=== PATIENT | female | born 1990 | race Caucasian/White ===

== ENCOUNTER 2017-11-01 16:04 | Observation (INO) | payer BC ==
[2017-11-01] MEDS ORDERED: BUPIVACAINE/EPI 0.5% 30 ML SDV ONE (16:18)
[2017-11-01] MEDS ORDERED: IOPAMIDOL (ISOVUE-300) 150 ML BTL ONE (16:19)
[2017-11-01] MEDS ORDERED: LR 1,000 ML IV ONE (17:03)
--- NOTE | 2017-11-01 17:04 | PDANEPAE ---
ANE History of Present Illness 27 yo female with cholelithiasis and acute cholecystitis. ANE Past Medical History - Cardiovascular History Hx Hypertension: No Hx Arrhythmias: No Hx Chest Pain: No Cardiovascular History Comment: heart murmur - Pulmonary History Hx COPD: No Hx Asthma/Reactive Airway Disease: No Hx Recent Upper Respiratory Infection: No Hx Sleep Apnea: No - Renal History Hx Renal Disorders: Yes Renal History Comment: current UTI on second round of Abx. h/o multi episodes of renal calculi. - Liver History Hx Hepatic Disorders: No - Surgical History Prior Surgeries: lithotripsy ANE Review of Systems Review of Systems: - Systems Constitutional: Reports: no symptoms Cardiac: Reports: no symptoms Respiratory: Reports: no symptoms Gastrointestinal: Reports: abdominal pain (10/16 currently) ANE Patient History - Allergies Allergies/Adverse Reactions: No Known Allergies Allergy (Unverified 11/01/17 16:32) - Home Medications Home Medications: Keflex 11/01/17 [Last Taken 10/31/17] Nexplanon 11/01/17 [Last Taken 11/01/17] - NPO status NPO Since - Liquids (Date): 11/01/17 NPO Since - Liquids (Time): 07:00 NPO Since - Solids (Date): 10/31/17 NPO Since - Solids (Time): 18:30 - Anes Hx Anes Hx: no prior problems - Family Anes Hx Family Anes Hx: neg - N/A ANE Labs/Vital Signs - Vital Signs Blood Pressure: 127/76 Heart Rate: 80 Respiratory Rate: 14 O2 Sat (%): 96 Height: 165.1 cm Weight: 58.967 kg ANE Physical Exam - Airway Neck exam: FROM Mallampati Score: Class 2 Mouth exam: normal dental/mouth exam - Pulmonary Pulmonary: clear to auscultation - Cardiovascular Cardiovascular: regular rate and rhythym - ASA Status ASA Status: II ANE Anesthesia Plan Anesthesia Plan: general endotracheal anesthesia
[2017-11-01] MEDS ORDERED: DEXAMETHASONE 4 MG/ML VIAL ONE ×2 (17:09)
[2017-11-01] MEDS ORDERED: fentaNYL 100 MCG/2 ML INJ ONE ×2 (17:09→19:10)
[2017-11-01] MEDS ORDERED: KETOROLAC 30 MG/1 ML SDV ONE (17:09)
[2017-11-01] MEDS ORDERED: ROCURONIUM 50 MG/5 ML VIAL ONE (17:49)
[2017-11-01] MEDS ORDERED: LIDOCAINE 2% 5 ML SDV ONE (17:49)
[2017-11-01] MEDS ORDERED: PROPOFOL 200 MG/20 ML VIAL ONE ×2 (17:49)
[2017-11-01] MEDS ORDERED: ONDANSETRON 4 MG/2 ML VIAL IVP PRN (17:52)
--- NOTE | 2017-11-01 17:52 | POSTOPPROG ---
Post Op Note Date of Operation: 11/01/17 Surgeon: Chris Martin Pit Crane Operator: Fern Silva Anesthesiologist: Yajaira Feliz Anesthesia: GET(General Endotracheal) Pre-op Diagnosis: Acute Choly Post-op Diagnosis: Same Procedure: Lap Choly Findings: small duct/stones Inf/Abcess present in the surg proc area at time of surgery?: Yes Depth: Organ Space EBL: Minimal Complications: no immediate Specimen(s): gallbladder
[2017-11-01] MEDS ORDERED: LR 1,000 ML IV SCH (18:00)
[2017-11-01] MEDS ORDERED: ONDANSETRON 4 MG/2 ML VIAL ONE ×2 (18:20→19:23)
[2017-11-01] MEDS ORDERED: oxyCODONE IR 5 MG TAB PO PRN (18:25)
[2017-11-01] MEDS ORDERED: LR 500 ML IV PRN (18:25)
[2017-11-01] MEDS ORDERED: NALOXONE HCL 0.4 MG/ML INJ IVP PRN (18:25)
[2017-11-01] MEDS ORDERED: ALBUTEROL 3 ML DEYVIAL IH PRN (18:25)
--- NOTE | 2017-11-01 18:54 | POSTANESTH ---
Post Anesthetic Evaluation Cardiovascular Status: Normal, Stable Respiratory Status: Normal, Stable Level of Consciousness/Mental Status: Can Participate in Eval, Moderately Sleepy Pain Control: Adequate, Prn Tx Ordered Nausea/Vomiting Control: Adequate, Prn Tx Ordered Complications Possibly Related to Anesthesia: None Noted
--- NOTE | 2017-11-01 19:09 | GOP ---
[f rep st] OPERATIVE REPORT DATE OF OPERATION: 11/01/2017 SURGEON: Chris Martin MD INDUSTRIAL TECH INSTRUCTOR: Fern Silva PA-C. ANESTHESIA: General. ANESTHESIOLOGIST: Yajaira Farooq MD PREOPERATIVE DIAGNOSIS: Acute cholecystitis. POSTOPERATIVE DIAGNOSIS: Acute cholecystitis. PROCEDURE PERFORMED: Laparoscopic cholecystectomy. FINDINGS: Edematous gallbladder. INDICATIONS: 27-year-old female with a history of recurrent biliary colic, who presents with a 1-day history of a progressive right upper quadrant pain. She is undergoing a laparoscopic cholecystectomy at this time. Risks and benefits were explained including bleeding, infection, open conversion, bile duct injury , retained stone, potential role for postoperative ERCP as well as others. All questions were answered. She desires to proceed. A assistant signal maintainer is standard, necessary, and customary for the safe performance of this procedure. DESCRIPTION OF PROCEDURE: After general anesthesia was induced, the abdomen was preinjected with 0.5% Marcaine with epinephrine. A curvilinear infraumbilical incision was created. The midline fascia was opened vertically. A 10 mm trocar was placed under direct visualization. A 5 mm epigastric port followed by 2 right upper quadrant percutaneous ports were inserted. The gallbladder was mildly edematous. This was easily retracted cephalad. Both duct and artery circumferentially encompassed confirming the critical view of safety. The duct was multiply clipped and divided with the ultrasonic dissector , as was the artery. The gallbladder was peeled from the liver bed fossa and brought through umbilical port site intact using EndoCatch pouch. Satisfactory hemostasis was assured. Further exploration revealed normal cystic bilateral ovaries and uterus, normal appendix, normal appearing visualized visceral contents as well as liver. Trocars were removed under direct visualization. The infraumbilical midline fascia was closed with a running Vicryl suture. The wounds were closed with Monocryl suture followed by Dermabond. The patient was taken to recovery uneventfully. /[id number]/MODL MTDD
[2017-11-01] MEDS: fentaNYL 100 MCG/2 ML INJ IVP PRN ×3 (19:13→19:27)
[2017-11-01] MEDS ORDERED: HYDROmorphONE/DILAUDID 2 MG/ML INJ ONE (19:29)
[2017-11-01] MEDS ORDERED: PROMETHAZINE HCL 25 MG/ML INJ ONE (19:30)
[2017-11-01] MEDS: PROMETHAZINE HCL 25 MG/ML INJ IVP PRN ×2 (19:33→19:47)
[2017-11-01] MEDS: HYDROmorphone HCL/NS 0.5 MG/ML SYR IVP PRN ×3 (19:33→20:57)
[2017-11-01] MEDS: KETOROLAC 15 MG/1 ML SDV IVP SCH (20:09)
[2017-11-01] MEDS: HYDROCODONE/APAP 5/325 TAB PO PRN (22:11)
[2017-11-02] MEDS: KETOROLAC 15 MG/1 ML SDV IVP SCH ×2 (00:20→05:40)
[2017-11-02] MEDS: HYDROCODONE/APAP 5/325 TAB PO PRN ×3 (00:34→10:45)
--- NOTE | 2017-11-02 06:26 | SOAPPROG ---
SOAP Progress Note Assessment/Plan: Assessment:no overnight issues. surgical pain only. no nausea. avss. comfortable. abd soft, dist, approp tenderness. s/p lap choly. doing well. home today. Plan: 11/02/17 06:25 Objective: Vital Signs Temp Pulse Resp BP Pulse Ox 36.9 C 75 16 100/59 L 96 11/02/17 05:37 11/02/17 05:37 11/02/17 05:37 11/02/17 05:37 11/02/17 05:37 11/01/17 11/02/17 11/03/17 05:59 05:59 05:59 Intake Total 2910 Output Total 805 Balance 2105 ICD10 Worksheet Patient Problems: Problems Problem Status Onset Acute cholecystitis Acute
--- NOTE | 2017-11-02 09:08 | ASMTLACE ---
LACE Length of stay for Answers: Less than 1 day current admission Acuity / Level of Answers: No Care: Did the patient have an inpatient admission? Comorbidities - select Answers: Other Notes: cholecystitis all that apply # of Emergency department Answers: 0 visits in the last 6 months Score: 1 Date Signed: 11/02/2017 09:07 AM Electronically Signed By:Flor Grover RN
--- NOTE | 2017-11-02 09:11 | ASMTCMCOM ---
CM Note CM Note Notes: Chart reviewed. 27 year old female s/p cholecystectomy medically cleared for dc to home. No needs identified. CM available should needs arise. Date Signed: 11/02/2017 09:11 AM Electronically Signed By:Flor Grover RN
[2017-11-02 09:39] VITALS: BP 116/71; PULSE 82; RESP 18; TEMP 98.5; O2SAT 97
== END 2017-11-02 14:28 | disposition home or self-care (01) ==
LOC: FSGY 16:04 → F1N 17:52
PROVIDERS: ADMIT Surgery; ATTEND Surgery
PROC: 0FT44ZZ Resection of Gallbladder, Percutaneous Endoscopic Approach (ICD-10-PCS; principal; 2017-11-01 16:00)
DX: K80.00 Calculus of gallbladder with acute cholecystitis without obstruction (principal); Z87.442 Personal history of urinary calculi; Z87.440 Personal history of urinary (tract) infections
CPT/HCPCS: 47562; G0378; J1100; J1170; J1885; J2405; J2550; J2704; J3010; Q9967

== ENCOUNTER 2017-11-06 18:13 | Emergency (ER) | payer BC ==
[2017-11-06 18:19] VITALS: RESP 16
--- NOTE | 2017-11-06 18:28 | EDPHY ---
H & P Stated Complaint: R lower quad pain radiating down to pelvic area-cee 5d ago Time Seen by Provider: 11/06/17 18:27 - Personal History LMP (Females 10-55): Extended Cycle BCP/Inj Current Tetanus/Diphtheria Vaccine: No Current Tetanus Diphtheria and Acellular Pertussis (TDAP): No - Medical/Surgical History Hx Asthma: No Hx Chronic Respiratory Disease: No Hx Diabetes: No Hx Cardiac Disease: No Hx Renal Disease: No Hx Cirrhosis: No Hx Alcoholism: No Hx HIV/AIDS: No Hx Splenectomy or Spleen Trauma: No Other PMH: kidney stones, uti hx - Social History Smoking Status: Never smoked Constitutional: Initial Vital Signs Temperature (C) 36.6 C 11/06/17 18:16 Heart Rate 75 11/06/17 18:16 Respiratory Rate 16 11/06/17 18:16 Blood Pressure 108/72 11/06/17 18:16 O2 Sat (%) 93 11/06/17 18:16 O2 Delivery Mode Room Air Allergies/Adverse Reactions: No Known Allergies Allergy (Verified 11/06/17 18:14) Home Medications: Medication Instructions Recorded Etonogestrel [Nexplanon] 68 mg SQ ONCE #0 11/01/17 Hydrocodone/APAP 5/325 [[place] 1 - 2 tab PO Q4HRS PRN #20 tab 11/01/17 5/325 (*)] Medical Decision Making - Diagnostics Imaging Results: Imaging Impressions Pelvic/Renal Ultrasound 11/06/17 19:13 Impression: Dominant right ovarian cyst with associated fluid in the right adnexa. Results called and discussed with Wesly Vivas MD on November 06, 2017 at 2007 hours. Imaging: Discussed imaging studies w/ procurement accountant Radiologist, I viewed and interpreted images myself ED Course/Re-evaluation: CHIEF COMPLAINT: Right lower quadrant pain s/p cholecystectomy HISTORY OF PRESENT ILLNESS: The patient is a 27 y/o female s/p cholecystectomy complaining of abdominal pain. She recently had a laparoscopic cholecystectomy with Dr. Martin, general surgeon, 5 days ago. Prior to the cholecystectomy she had upper right quadrant pain that radiated to her back as well as gallstones. She has had worsening right-sided abdominal pain since the surgery which she initially thought was post-procedure soreness. The pain was lower than her abdominal pain prior to the cholecystectomy. Due to the pain, she presented to [facility] emergency department yesterday. They preformed an abdominopelvic CT with contrast and lab work and diagnosed her with constipation. Today she had 2 enemas with a small of amount of stool. Ranitidine, stool softener, Tylenol, Advil, and 3 doses of Hydrocodone have not relieved her symptoms. Today the abdominal pain did not improve and she was advised to present to this ED by Dr. Martin. She currently has a sharp and radiating lower right-sided abdominal pain. No headache, chest pain , shortness of breath, urinary complaints, numbness, paresthesias, or fever. A recent CT revealed several kidney stones that are 1mm in diameter. REVIEW OF SYSTEMS: A 10 point review of systems was performed and is negative with the exception of the elements mentioned in the history of present illness. PHYSICAL EXAM: HR, BP, O2 Sat, RR. Temp noted General Appearance: Alert, well hydrated, appropriate, and non-toxic appearing. Head: Atraumatic without scalp tenderness or obvious injury Eyes: Pupils equal, round, reactive to light and accommodation, EOMI, no trauma , no injection. Ears: Clear bilaterally, no perforation, normal landmarks Nose: Atraumatic, no rhinorrhea, clear. Throat: There is no erythema or exudates, no lesions, normal tonsils, mucus membranes moist. Neck: Supple, nontender, no lymphadenopathy. Respiratory: No retractions, no distress, no wheezes, and no accessory muscle use. Lungs are clear to auscultation bilaterally. Cardiovascular: Regular rate and rhythm, no murmurs, rubs, or gallops. Bilateral carotid, radial, dorsalis pedis, and posterior tibial pulses intact. Good capillary refill all extremities. Gastrointestinal: Right lower quadrant tenderness to palpation. Abdomen is soft , non-distended, no masses, no rebound, no guarding, no peritoneal signs. Musculoskeletal: Normal active ROM of all extremities, atraumatic. Neurological: Alert, appropriate, and interactive. Nonfocal neuro Skin: No rashes, good turgor, no nodules on palpation. Past medical history: Kidney stones, frequent UTI's, ovarian cysts Past surgical history: Cholecystectomy Family history: Denies Social history: at bedside, lives in [place], employed DIAGNOSTICS/PROCEDURES/CRITICAL CARE TIME: Abdomen US: Negative Abdomen retroperitoneal US: Negative Pelvic US: Right ovarian cyst DIFFERENTIAL DIAGNOSIS: The differential diagnosis for the patient's abdominal pain included but was not limited to ovarian cyst, pelvic inflammatory disease, ovarian torsion, urinary tract infection, ectopic , cholecystitis, sphincter of Oddi's malfunction, small bowel obstruction, and appendicitis. MEDICAL DECISION MAKING: The patient is a 27 y/o female s/p cholecystectomy presenting with right lower quadrant tenderness to palpation. Labs and kidney/appendix/ovarian US ordered. I am not having an abdominal CT preformed as she had an abdominal CT with contrast yesterday that revealed constipation. 1L IV NS, 4mg IV Zofran, 1mg IV Dilaudid, and 30mg IV Ketoralac administered. 1844: I reviewed patient's prior medical records via [employer]. Her white count has improved since yesterday 2007: Spoke with Dr. iRcardo, radiologist, he reports that the patient has a large right ovarian cyst. 2008: Consulted with Dr. Martin, general surgeon, regarding this patient. 2009: Reassessed patient and discussed laboratory and imaging findings. She is feeling better after medication. I have advised her to follow up with an [employer] LOCOM[employer]IVE this week. Patient has been prescribed Zofran and Oxycodone for her symptoms. Return precautions provided; patient is comfortable with this plan. - Data Points Laboratory Results: Laboratory Results 11/06/17 18:45 11/06/17 18:45 11/06/17 11/06/17 11/06/17 18:45 18:45 18:45 WBC 14.36 10^3/uL H 10^3/uL (3.80-9.50) RBC 4.21 10^6/uL 10^6/uL (4.18-5.33) Hgb 13.1 g/dL g/dL (12.6-16.3) Hct 38.5 % % (38.0-47.0) MCV 91.4 fL fL (81.5-99.8) MCH 31.1 pg pg (27.9-34.1) MCHC 34.0 g/dL g/dL (32.4-36.7) RDW 12.0 % % (11.5-15.2) Plt Count 197 10^3/uL 10^3/uL (150-400) MPV 10.9 fL fL (8.7-11.7) Neut % (Auto) 81.0 % H % (39.3-74.2) Lymph % (Auto) 11.9 % L % (15.0-45.0) [place] % (Auto) 5.5 % % (4.5-13.0) Eos % (Auto) 0.9 % % (0.6-7.6) Baso % (Auto) 0.2 % L % (0.3-1.7) Nucleat RBC Rel Count 0.0 % % (0.0-0.2) Absolute Neuts (auto) 11.63 10^3/uL H 10^3/uL (1.70-6.50) Absolute Lymphs (auto) 1.71 10^3/uL 10^3/uL (1.00-3.00) Absolute Monos (auto) 0.79 10^3/uL 10^3/uL (0.30-0.80) Absolute Eos (auto) 0.13 10^3/uL 10^3/uL (0.03-0.40) Absolute Basos (auto) 0.03 10^3/uL 10^3/uL (0.02-0.10) Absolute Nucleated RBC 0.00 10^3/uL 10^3/uL (0-0.01) Immature Gran % 0.5 % % (0.0-1.1) Immature Gran # 0.07 10^3/uL 10^3/uL (0.00-0.10) ABG Lactic Acid Sodium 140 mEq/L mEq/L (135-145) Potassium 3.5 mEq/L mEq/L (3.5-5.2) Chloride 101 mEq/L mEq/L (97-110) Carbon Dioxide 26 mEq/l mEq/l (22-31) Anion Gap 13 mEq/L mEq/L (8-16) BUN 9 mg/dL mg/dL (7-23) Creatinine 0.7 mg/dL mg/dL (0.6-1.0) Estimated GFR > 60 Glucose 95 mg/dL mg/dL (70-100) Calcium 9.2 mg/dL mg/dL (8.5-10.4) Total Bilirubin 0.9 mg/dL mg/dL (0.1-1.4) Conjugated Bilirubin 0.4 mg/dL mg/dL (0.0-0.5) Unconjugated Bilirubin 0.5 mg/dL mg/dL (0.0-1.1) AST 23 IU/L IU/L (14-46) ALT 49 IU/L IU/L (9-52) Alkaline Phosphatase 61 IU/L IU/L (38-126) Total Protein 7.2 g/dL g/dL (6.3-8.2) Albumin 4.2 g/dL g/dL (3.5-5.0) Beta HCG, Qual NEGATIVE 11/06/17 18:45 WBC RBC Hgb Hct MCV MCH MCHC RDW Plt Count MPV Neut % (Auto) Lymph % (Auto) [place] % (Auto) Eos % (Auto) Baso % (Auto) Nucleat RBC Rel Count Absolute Neuts (auto) Absolute Lymphs (auto) Absolute Monos (auto) Absolute Eos (auto) Absolute Basos (auto) Absolute Nucleated RBC Immature Gran % Immature Gran # ABG Lactic Acid 1.2 mmol/L mmol/L (0.5-1.6) Sodium Potassium Chloride Carbon Dioxide Anion Gap BUN Creatinine Estimated GFR Glucose Calcium Total Bilirubin Conjugated Bilirubin Unconjugated Bilirubin AST ALT Alkaline Phosphatase Total Protein Albumin Beta HCG, Qual Medications Given: Discontinued Medications Hydromorphone HCl (Dilaudid) 1 mg IVP EDNOW ONE Stop: 11/06/17 18:49 Last Admin: 11/06/17 18:52 Dose: 1 mg Sodium Chloride (Ns) 1,000 mls @ 0 mls/hr IV EDNOW ONE; Wide Open PRN Reason: Protocol Stop: 11/06/17 18:49 Last Admin: 11/06/17 18:53 Dose: 1,000 mls Ketorolac Tromethamine (Toradol) 30 mg IVP EDNOW ONE Stop: 11/06/17 18:49 Last Admin: 11/06/17 18:53 Dose: 30 mg Ondansetron HCl (Zofran) 4 mg IVP EDNOW ONE Stop: 11/06/17 18:49 Last Admin: 11/06/17 18:53 Dose: 4 mg Departure - Departure Disposition: Home, Routine, Self-Care Clinical Impression: Right ovarian cyst Condition: Good Instructions: Ibuprofen (By mouth), Oxycodone, Rapid Release (By mouth), Ondansetron (By mouth), Ovarian Cyst (ED) Additional Instructions: 1. You have a right ovarian cyst. 2. Take Oxycodone as prescribed for severe pain. 3. Take Zofran as prescribed for nausea. 4. Follow-up with your primary doctor or fire code inspector within 72 hours. 5. Return to the Emergency Department for fever, vomiting, diarrhea, chest pain , shortness of breath, increasing pain or other worsening of condition. Referrals: Beverly Talamantes [Primary Care Provider] - As per Instructions Rema Lara MD [Medical Doctor] - As per Instructions Report Scribed for: Wesly Vivas Report Scribed by: Anamaria Wang Date of Report: 11/06/17 Time of Report: 18:44
[2017-11-06] MEDS ORDERED: KETOROLAC 30 MG/1 ML SDV IVP ONE (18:48)
[2017-11-06] MEDS ORDERED: NS 1,000 ML IV ONE (18:48)
[2017-11-06] MEDS ORDERED: ONDANSETRON 4 MG/2 ML VIAL IVP ONE (18:48)
[2017-11-06] MEDS ORDERED: HYDROmorphONE/DILAUDID 2 MG/ML INJ IVP ONE (18:48)
[2017-11-06 18:58] LABS: PLATELET COUNT 197 10^3/uL (150-400)
[2017-11-06] MEDS ORDERED: OXYCODONE/APAP 5/325MG PREPACK#4 BTL TAKEHOME ONE (20:16)
[2017-11-06] MEDS ORDERED: ONDANSETRON 4MG PREPACK#2 BTL TAKEHOME ONE (20:16)
[2017-11-06] MEDS ORDERED: OXYCODONE/APAP 5/325 TAB PO ONE (20:32)
[2017-11-06] MEDS ORDERED: ONDANSETRON DISINTEGRATING 4 MG TAB PO ONE (20:32)
[2017-11-06 20:41] VITALS: O2SAT 97
[2017-11-06 20:52] VITALS: BP 114/69; PULSE 78; TEMP 98.4
== END 2017-11-06 20:53 | disposition home or self-care (01) ==
DX: N83.201 Unspecified ovarian cyst, right side (principal); E86.9 Volume depletion, unspecified; Z90.49 Acquired absence of other specified parts of digestive tract
CPT/HCPCS: 96374; J1170; J1885; J2405

== ENCOUNTER 2017-11-07 11:06 | Observation (INO) | payer BC ==
[2017-11-07] MEDS ORDERED: HYDROmorphONE/DILAUDID 2 MG/ML INJ IVP ONE ×2 (11:25→11:48)
[2017-11-07] MEDS ORDERED: NS 1,000 ML IV ONE (11:25)
[2017-11-07] MEDS ORDERED: ONDANSETRON 4 MG/2 ML VIAL IVP ONE (11:25)
--- NOTE | 2017-11-07 11:29 | EDPHY ---
HPI/HX/ROS/PE/MDM Narrative: CHIEF COMPLAINT: Right upper quadrant abdominal pain HPI: The patient is a 27-year-old female who underwent a cholecystectomy done last week with Dr. Martin. Following that surgery she developed severe right- sided abdominal pain, was seen at [facility] emergency department where she had a CT that showed only constipation and she was discharged. She returned last night to our ER with right-sided abdominal pain, underwent an ultrasound which showed a possible ruptured ovarian cyst and was discharged home. This morning she states her pain has returned and it is severe. It was not controlled with 3-4 tablets of oxycodone. REVIEW OF SYSTEMS: Aside from elements discussed in the HPI, a comprehensive 10-point review of systems was reviewed and is negative. PMH:Cholecystitis, kidney stones SOCIAL HISTORY: Denies alcohol or drug abuse. PHYSICAL EXAM: General:Patient is uncomfortable, vomiting. ENT:Eyes are normal to inspection. ENT inspection normal. Neck: Normal inspection. Full range of motion. Respiratory:No respiratory distress. Breath sounds normal bilaterally. Cardiovascular: Regular rate and rhythm. Strong peripheral pulses. Normal cap refill. Abdomen:The abdomen is diffusely tender with severe tenderness in her RUQ. Back: Normal to inspection. No tenderness to palpation. Skin: Normal color. No rash. Warm and dry. Extremities: Normal appearance. Full range of motion. Neuro: Oriented x3. Normal motor function. Normal sensory function. ED Course: This patient presents with recurrent RUQ pain of unknown etiology. She is in severe distress. US RUQ: no new findings. I consulted Dr. Martin who has evaluated the patient at bedside and plans to admit her for pain control and further workup. Abd XR suggests ileus. I see no signs of bowel rupture, bowel perforation, appendicitis or sepsis. - Data Points Laboratory Results: Laboratory Results 11/07/17 11:35 11/07/17 11:35 11/07/17 11/07/17 11:35 11:35 WBC 15.54 10^3/uL H 10^3/uL (3.80-9.50) RBC 4.21 10^6/uL 10^6/uL (4.18-5.33) Hgb 13.0 g/dL g/dL (12.6-16.3) Hct 38.6 % % (38.0-47.0) MCV 91.7 fL fL (81.5-99.8) MCH 30.9 pg pg (27.9-34.1) MCHC 33.7 g/dL g/dL (32.4-36.7) RDW 11.9 % % (11.5-15.2) Plt Count 197 10^3/uL 10^3/uL (150-400) MPV 10.8 fL fL (8.7-11.7) Neut % (Auto) 88.7 % H % (39.3-74.2) Lymph % (Auto) 5.8 % L % (15.0-45.0) [place] % (Auto) 4.5 % % (4.5-13.0) Eos % (Auto) 0.2 % L % (0.6-7.6) Baso % (Auto) 0.2 % L % (0.3-1.7) Nucleat RBC Rel Count 0.0 % % (0.0-0.2) Absolute Neuts (auto) 13.78 10^3/uL H 10^3/uL (1.70-6.50) Absolute Lymphs (auto) 0.90 10^3/uL L 10^3/uL (1.00-3.00) Absolute Monos (auto) 0.70 10^3/uL 10^3/uL (0.30-0.80) Absolute Eos (auto) 0.03 10^3/uL 10^3/uL (0.03-0.40) Absolute Basos (auto) 0.03 10^3/uL 10^3/uL (0.02-0.10) Absolute Nucleated RBC 0.00 10^3/uL 10^3/uL (0-0.01) Immature Gran % 0.6 % % (0.0-1.1) Immature Gran # 0.10 10^3/uL 10^3/uL (0.00-0.10) Sodium 135 mEq/L mEq/L (135-145) Potassium 3.8 mEq/L mEq/L (3.5-5.2) Chloride 101 mEq/L mEq/L (97-110) Carbon Dioxide 22 mEq/l mEq/l (22-31) Anion Gap 12 mEq/L mEq/L (8-16) BUN 10 mg/dL mg/dL (7-23) Creatinine 0.7 mg/dL mg/dL (0.6-1.0) Estimated GFR > 60 Glucose 80 mg/dL mg/dL (70-100) Calcium 8.6 mg/dL mg/dL (8.5-10.4) Total Bilirubin 1.1 mg/dL mg/dL (0.1-1.4) Conjugated Bilirubin 0.5 mg/dL mg/dL (0.0-0.5) Unconjugated Bilirubin 0.6 mg/dL mg/dL (0.0-1.1) AST 19 IU/L IU/L (14-46) ALT 44 IU/L IU/L (9-52) Alkaline Phosphatase 58 IU/L IU/L (38-126) Total Protein 6.8 g/dL g/dL (6.3-8.2) Albumin 4.0 g/dL g/dL (3.5-5.0) Lipase 188 IU/L IU/L (23-300) Medications Given: Discontinued Medications Hydromorphone HCl (Dilaudid) 1 mg IVP EDNOW ONE Stop: 11/07/17 11:26 Last Admin: 11/07/17 11:34 Dose: 1 mg Hydromorphone HCl (Dilaudid) 1 mg IVP EDNOW ONE Stop: 11/07/17 11:49 Last Admin: 11/07/17 11:53 Dose: 1 mg Sodium Chloride (Ns) 1,000 mls @ 0 mls/hr IV EDNOW ONE; Wide Open PRN Reason: Protocol Stop: 11/07/17 11:26 Last Admin: 11/07/17 11:34 Dose: 1,000 mls Ondansetron HCl (Zofran) 4 mg IVP EDNOW ONE Stop: 11/07/17 11:26 Last Admin: 11/07/17 11:34 Dose: 4 mg General Time Seen by Provider: 11/07/17 11:13 Initial Vital Signs: Initial Vital Signs Temperature (C) 37.1 C 11/07/17 11:08 Heart Rate 86 11/07/17 11:08 Respiratory Rate 20 11/07/17 11:08 Blood Pressure 117/89 H 11/07/17 11:08 O2 Sat (%) 93 11/07/17 11:08 O2 Delivery Mode Room Air Allergies/Adverse Reactions: No Known Allergies Allergy (Verified 11/07/17 11:07) Home Medications: Medication Instructions Recorded Etonogestrel [Nexplanon] 68 mg SQ .[id number] #0 11/01/17 Hydrocodone/APAP 5/325 [[place] 1 - 2 tab PO Q4HRS PRN #20 tab 11/01/17 5/325 (*)] Ondansetron Odt [Zofran Odt 4 mg 4 mg PO Q4 PRN #10 tab 11/06/17 (RX)] Acetaminophen [Tylenol 325mg (*)] 650 mg PO Q6 PRN 11/07/17 Ibuprofen [Motrin (*)] 400 mg PO Q6 PRN 11/07/17 oxyCODONE IR [Oxycodone Ir (*)] 15 mg PO Q6 PRN 11/07/17 Departure - Departure Disposition: [facility] Acute Condition: Fair
[2017-11-07] MEDS ORDERED: HYDROmorphONE/DILAUDID 2 MG/ML INJ ONE (11:39)
[2017-11-07 11:40] LABS: PLATELET COUNT 197 10^3/uL (150-400)
[2017-11-07] MEDS ORDERED: KETOROLAC 30 MG/1 ML SDV IVP ONE (12:26)
[2017-11-07] MEDS ORDERED: HYDROmorphone HCL/NS 0.5 MG/ML SYR IVP PRN (13:37)
[2017-11-07] MEDS ORDERED: DIAZEPAM 5 MG/ML 1 ML SYR IVP ONE (13:41)
[2017-11-07] MEDS ORDERED: ACETAMINOPHEN 325 MG TAB PO PRN (13:58)
[2017-11-07] MEDS ORDERED: NON-FORMULARY NEW DRUG (Etonogestrel [Nexplanon] 68 MG) SQ SCH (14:00)
--- NOTE | 2017-11-07 14:19 | GHP ---
[f rep st] HISTORY AND PHYSICAL DATE OF ADMISSION: 11/07/2017 REASON FOR ADMISSION: Abdominal pain. HISTORY OF PRESENT ILLNESS: 27-year-old healthy female with a complicated medical history over the past month. She initially presented with left-sided abdominal pain, which workup initially disclosed nephrolithiasis as well as a UTI. She had been worked up by her primary care physician as well as Urology Service requiring antibiotic therapy followed by a cystoscopy and urethral dilation procedures. During her recovery from these events, she presented to my office last Wednesday with a new complaint of severe progressive right upper quadrant pain over the ensuing 24 hours. Significantly, during her nephrolithiasis workup, she was noted to have had gallstones. In retrospect, she reports having had a history of right upper quadrant pain related to meals over the past few years, which some of this had previously been attributed to irritable bowel syndrome. She underwent an uncomplicated laparoscopic cholecystectomy on Wednesday for a clinical diagnosis of acute cholecystitis. She had normal preoperative liver enzymes. Laparoscopic exploration revealed normal -appearing bilateral ovaries as well as a normal-appearing appendix and remaining visceral complements. Surgical and pathological findings did confirm this diagnosis. She was discharged from the hospital the following day in markedly improved condition. She did well as for her first couple of days at home and then developed severe worsening right midabdominal pain starting on Wednesday. She went to the [facility] emergency room at that time. Workup including CT imaging and laboratory assessment disclosed leukocytosis with normal liver enzymes. CT imaging disclosed evidence of what was described as constipation. No other concerns for post-cholecystectomy sequelae were noted, and she was discharged to home with laxative recommendations as well as analgesics. She presented to the [place] emergency room yesterday with severe persistent pain. Workup at that time disclosed a large right ovarian cyst. She was again treated medically with some improvement in her symptoms and discharged home last evening. She re-presents again to the emergency room today with severe worsening of sharp right-sided abdominal pain. She described this pain does at times radiate toward her vagina. She feels that this pain is different than her cholecystitis pain. She also states that some of this pain is worse when taking these deep inspirations. She is not currently hungry. She is slightly nauseated at present time. She did receive some relief after trying multiple enemas at home. She denies a prior history of similar complaints of such. She does report 1 remote history of an ovarian cyst for which she did receive an emergency room evaluation. She says that this pain, albeit maybe somewhat reminiscent, was nowhere near as severe. PAST MEDICAL HISTORY: Nephrolithiasis, cholelithiasis. PAST SURGICAL HISTORY: Nephrolithotripsy, cystoscopy. HOME MEDICATIONS: Nexplanon. ALLERGIES: No known drug allergies. SOCIAL HISTORY: No significant alcohol or tobacco. She is . 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 FAMILY HISTORY: Noncontributory. REVIEW OF SYSTEMS: Notable for above acute GI complaints as well as renal complaints only. Otherwise, negative 10-point review. PHYSICAL EXAM: VITAL SIGNS: Temperature 37.1, blood pressure 123/80, pulse 80 , respirations 24. GENERAL: The patient is alert and appropriate, uncomfortable anxious in appearance. HEENT: Anicteric. LYMPHATIC: No cervical or supraclavicular lymphadenopathy. HEART: Regular. LUNGS: Clear. ABDOMEN: Soft, mildly distended. Incisions healing nicely without erythema or ecchymosis. Mild diffuse right-sided tenderness without rebound or guarding. Exam is somewhat nonfocal with tenderness within her way low right lower quadrant as well as around her subcostal space. No Stone sign. EXTREMITIES: Without edema. NEUROLOGIC: Alert and appropriate. SKIN: Without rashes. LABORATORY DATA: White count 15 with left shift, hemoglobin 13, platelets of 197. Electrolytes within reference range. Liver enzymes within reference range. Lipase 188. Pelvic ultrasound from last evening as well as today's pelvic ultrasound were reviewed, noting evidence of a large right ovarian cyst with pericystic fluid. Abdominal x-ray today with evidence of a gastric air- fluid level as well as prominent small bowel and colonic dilatation. No free air was seen. The right upper quadrant shows appropriate postoperative post- cholecystectomy fluid and no biliary ductal dilatation. CT imaging from [facility] as well as ED notes were directly reviewed on PACS. Similar findings as above are seen. IMPRESSION: 1. Severe acute postoperative pain status post laparoscopic cholecystectomy for acute cholecystitis. 2. Right ovarian cyst, not seen at laparoscopy on Wednesday. 3. History of recent nephrolithiasis and urinary tract infection with possible urethral stricture, status post cystoscopy, nephrolithotripsy, and dilation. 4. Possible postoperative ileus. PLAN: Patient is being admitted for pain control, antiemetics, and IVF resuscitation. She has no evidence of retained stone, bile duct injury, or biliary leak on any of her 3 recent imaging studies or lab assessment. She does have findings of a new right ovarian cyst with periadnexal fluid with mild leukocytosis without evidence of torsion and low clinical suspicion for tubo- ovarian abscess. No current UA is available for review. Will try scheduled anti-inflammatory and antispasmodic regimen. Query sphincter of Oddi spasm versus ileus as contributing factors to her pain as well as her new findings of ovarian cyst. Her leucocytosis is not necessarily consistent with the above diagnosis. She has no other acute findings noted on imaging or laboratory studies. She was planned to follow up with outpatient Gynecology, which will plan to maintain this followup. Further recommendations pending clinical course. Findings, observations, and recommendations were discussed with the patient and family at bedside as well as with emergency room physician litigation partner. /[id number]/MODL MTDD
[2017-11-07] MEDS: METOCLOPRAMIDE 10 MG/2 ML VIAL IVP PRN ×2 (14:47→22:24)
[2017-11-07] MEDS: D5W 1/2 NS W/ 20 KCl/L 1,000 ML IV SCH ×2 (14:47→22:53)
[2017-11-07] MEDS: DICYCLOMINE 10 MG CAP PO SCH ×2 (15:31→20:07)
[2017-11-07] MEDS ORDERED: ONDANSETRON 4 MG/2 ML VIAL IVP PRN (16:08)
[2017-11-07] MEDS: HYDROmorphone HCL/NS 0.5 MG/ML SYR IVP PRN ×3 (16:14→22:53)
[2017-11-07] MEDS: KETOROLAC 15 MG/1 ML SDV IVP SCH ×2 (18:26→22:52)
[2017-11-08] MEDS: HYDROmorphone HCL/NS 0.5 MG/ML SYR IVP PRN ×3 (02:37→14:54)
[2017-11-08] MEDS: METOCLOPRAMIDE 10 MG/2 ML VIAL IVP PRN ×2 (02:49→18:26)
[2017-11-08] MEDS: oxyCODONE IR 5 MG TAB PO PRN ×2 (02:49→18:12)
[2017-11-08] MEDS: DICYCLOMINE 10 MG CAP PO SCH ×4 (05:01→21:21)
[2017-11-08] MEDS: KETOROLAC 15 MG/1 ML SDV IVP SCH ×3 (05:01→18:13)
[2017-11-08] MEDS: D5W 1/2 NS W/ 20 KCl/L 1,000 ML IV SCH ×2 (07:13→21:22)
--- NOTE | 2017-11-08 08:23 | SOAPPROG ---
SOAP Progress Note Assessment/Plan: Assessment: still with persistent episodic right side abd pain with radiation toward her back. nausea. symptoms relieved with toradol. unclear bentyl effect. some incomplete voiding sensation. afebrile. comfortable at present time. abd soft, right side tenderness as well as CVAT. incisions clean. wbc 9. UA + last adrian. ?biliary colic / retained stone vs renal colic. doubt significance of ovarian cyst - no evid torsion on any imaging study - pain no longer in her pelvis. wbc 9. confusing story given her recent constellation of concerns. will pursue MRCP today am. if normal, will have assess patient. care plan reviewed extensively with pt/ at bedside and father ( ) via telephone. Plan: 11/08/17 08:20 Objective: Vital Signs Temp Pulse Resp BP Pulse Ox 37.4 C 86 12 112/72 94 11/08/17 08:00 11/08/17 08:00 11/08/17 08:00 11/08/17 08:00 11/08/17 08:00 Laboratory Results 11/08/17 04:15 11/07/17 11/08/17 11/09/17 05:59 05:59 05:59 Intake Total 3378 Output Total 1600 Balance 1778 ICD10 Worksheet Patient Problems: Problems Problem Status Onset Acute cholecystitis Acute
--- NOTE | 2017-11-08 09:23 | ASMTCASEMG ---
Living Arrangements What is your living Answers: With Spouse arrangement? Who do you live with? Type Of Residence What kind of residence do Answers: House you live in? Discharge Plan Comments Coordination Status Comments Notes: Pt is a 27 y/o female admitted for abdominal pain. Pt will most likely d/c independent when medically stable. No therapies ordered at this time. CM available for changes. Plan: Independent Date Signed: 11/08/2017 09:22 AM Electronically Signed By:BONG Stein
[2017-11-08] MEDS: DIAZEPAM 5 MG/ML 1 ML SYR IVP PRN ×2 (09:49→14:20)
[2017-11-08] MEDS: GABAPENTIN 300 MG CAP PO SCH ×2 (16:27→21:21)
--- NOTE | 2017-11-08 17:19 | SOAPPROG ---
SOAP Progress Note Assessment/Plan: Assessment: Nephrolithiasis Acute noted as outpt on CAT scan with small bilateral stones -- nonobstructing and not in ureter. UTI in office of E. coli and rxed per notes. Cysto per office normal with mild urethral stenosis. Plan: hydrate and if not improved consider CAT stone protocol in AM. KUB noted dilated small bowel and pain may be related to dilated bowel 11/08/17 17:16 Subjective: per phone conversation with Dr. Martin Objective: Vital Signs Temp Pulse Resp BP Pulse Ox 37 C 70 16 115/58 L 98 11/08/17 15:19 11/08/17 15:19 11/08/17 15:19 11/08/17 15:19 11/08/17 15:19 Laboratory Results 11/08/17 04:15 11/07/17 11/08/17 11/09/17 05:59 05:59 05:59 Intake Total 3378 Output Total 1600 Balance 1778 Physical Exam - Physical Exam General Appearance: other (reviewed all of her images and labs, will see in AM ) ICD10 Worksheet Patient Problems: Problems Problem Status Onset Nephrolithiasis Acute Acute cholecystitis Acute - ICD10 Problem Qualifiers (1) Nephrolithiasis
[2017-11-08] MEDS ORDERED: TAMSULOSIN HCL 0.4 MG CAP PO ONE (17:31)
[2017-11-09] MEDS: DIAZEPAM 5 MG TAB PO SCH ×5 (00:04→23:57)
[2017-11-09] MEDS: KETOROLAC 15 MG/1 ML SDV IVP SCH ×5 (00:06→23:57)
[2017-11-09] MEDS: oxyCODONE IR 5 MG TAB PO PRN ×2 (01:19→07:49)
[2017-11-09] MEDS: DICYCLOMINE 10 MG CAP PO SCH ×4 (06:09→20:45)
[2017-11-09] MEDS: D5W 1/2 NS W/ 20 KCl/L 1,000 ML IV SCH ×2 (06:15→18:15)
--- NOTE | 2017-11-09 08:33 | SOAPPROG ---
SOAP Progress Note Assessment/Plan: Assessment: Nephrolithiasis Acute noted as outpt on CAT scan with small bilateral stones -- nonobstructing and not in ureter. UTI in office of E. coli and rxed per notes. Cysto per office normal with mild urethral stenosis. Plan: pain persists according to patient care records so plan for CAT scan stone protocol. Aware of recent CAT scans and results yet MRI not helpful in assessing nephro or ureterolithiasis. Pt declined CAT and discussed options of assessment, consider C. Diff for abd pain 11/09/17 08:31 Subjective: patient care notes confirm pt continues to have pain and CAT planned per conversation with Dr. Martin last PM. She has intermittent pain and diarrhea. She states pain is not comparable to prior stone pain Objective: Vital Signs Temp Pulse Resp BP Pulse Ox 36.7 C 91 16 117/81 H 97 11/09/17 07:51 11/09/17 07:51 11/09/17 07:51 11/09/17 07:51 11/09/17 07:51 Laboratory Results 11/09/17 04:17 11/08/17 11/09/17 11/10/17 05:59 05:59 05:59 Intake Total 3378 480 Output Total 1600 1400 Balance 1778 -920 Physical Exam - Physical Exam General Appearance: alert Respiratory: No respiratory distress Abdomen: other (point tender at anterior abdominal wall) Back: No CVA tenderness Extremities: No calf tenderness Neuro/Psych: alert, oriented x 3 ICD10 Worksheet Patient Problems: Problems Problem Status Onset Acute cholecystitis Acute Nephrolithiasis Acute - ICD10 Problem Qualifiers (1) Nephrolithiasis
[2017-11-09] MEDS: GABAPENTIN 300 MG CAP PO SCH ×3 (10:10→20:45)
--- NOTE | 2017-11-09 13:01 | SOAPPROG ---
<IsauroFern crandall - Last Filed: 11/09/17 13:02> SOAP Progress Note Assessment/Plan: Assessment: Persistent episodic RUQ pain of unknown etiology. Previous history nephrolithiasis. Previous ovarian cyst. Plan: Continue with pain medications and valium as necessary. Continue Bentyl for now. Advance diet as tolerated. Pt will discuss decision of CT scan or not with Dr. Muir today. 11/09/17 13:10 11/09/17 13:15 Subjective: Continues to have episodic "squeezing" RUQ pain. Pain occasionally radiates to right flank and back. Today pt states her attacks have been more spread out than previous days. She gets relief with oxycodone and valium together. Gabapentin and Bentyl unclear effect so far but tolerating well. Standing and ice pack seem to be helping her pain as well. Diet has been clear liquid and soft foods without correlation of symptoms. Admits to flatus. No BM for 2 days. Denies burning or pain with urination. Admits to one episode of RUQ while urinating yesterday. Denies chest pain and shortness of breath. WBC in normal range which is encouraging. Mentions not wanting further radiation exposure for future studies. Objective: Vital Signs Temp Pulse Resp BP Pulse Ox 36.7 C 91 16 117/81 H 97 11/09/17 07:51 11/09/17 07:51 11/09/17 07:51 11/09/17 07:51 11/09/17 07:51 Laboratory Results 11/09/17 04:17 11/08/17 11/09/17 11/10/17 05:59 05:59 05:59 Intake Total 3378 480 Output Total 1600 1400 Balance 1778 -920 Physical Exam: General: alert and oriented, mild discomfort, afebrile HEENT: anicteric, no lymphadenopathy Skin: Incisions healing well, no induration or erythema Heart: RRR Lungs: CTA bilaterally Abdomen: tender to light palpation RUQ, nontender to palpation all other quads, no suprapubic tenderness, bowel sounds present MS: nontender to palpation bilateral flank and back, no LE edema Neuro: appropriate, no deficits - Pending Discharge Pending Discharge Within 24 Hours: No ICD10 Worksheet Patient Problems: Problems Problem Status Onset Nephrolithiasis Acute Acute cholecystitis Acute <Chris Martin - Last Filed: 11/09/17 17:01> SOAP Progress Note Assessment/Plan: Assessment: patient with slow progress - more pain free intervals - still exquisitely painful when recur. spoke with dr. muir - [facility]. will continue current med regimen with hopeful dc tomorrow. Plan: 11/09/17 16:59 Objective: Vital Signs Temp Pulse Resp BP Pulse Ox 37 C 99 12 116/88 H 96 11/09/17 16:00 11/09/17 16:00 11/09/17 16:00 11/09/17 16:00 11/09/17 16:00 Laboratory Results 11/09/17 04:17 11/08/17 11/09/17 11/10/17 05:59 05:59 05:59 Intake Total 3378 480 Output Total 1600 1400 Balance 9621 -069
[2017-11-10] MEDS: KETOROLAC 15 MG/1 ML SDV IVP SCH (05:02)
[2017-11-10] MEDS: DICYCLOMINE 10 MG CAP PO SCH (05:05)
[2017-11-10] MEDS: DIAZEPAM 5 MG TAB PO SCH (05:05)
--- NOTE | 2017-11-10 08:12 | SOAPPROG ---
SOAP Progress Note Assessment/Plan: Assessment: decent night. slept well. longer pain free interval. no further BM. no nausea. AVSS. comfortable, sleepy. abd soft, mild generalized tenderness without rebound or guarding. incisions clean. abd pain - ? etiology. continued improvement. plan for dc to home today. discussed med taper. will see back in one week. further reccs pending clinical course. patient with slow progress - more pain free intervals - still exquisitely painful when recur. spoke with dr. davis - agree with cdif assessment. will continue current med regimen with hopeful dc tomorrow. Plan: 11/09/17 16:59 11/10/17 08:11 11/10/17 08:12 Objective: Vital Signs Temp Pulse Resp BP Pulse Ox 36.6 C 63 16 104/65 96 11/09/17 23:12 11/09/17 23:12 11/09/17 23:12 11/09/17 23:12 11/09/17 23:12 Laboratory Results 11/09/17 04:17 11/09/17 11/10/17 11/11/17 05:59 05:59 05:59 Intake Total 480 Output Total 1400 1000 Balance -920 -1000 ICD10 Worksheet Patient Problems: Problems Problem Status Onset Nephrolithiasis Acute Acute cholecystitis Acute
[2017-11-10 08:26] VITALS: BP 105/75; PULSE 72; RESP 12; TEMP 98.2; O2SAT 97
--- NOTE | 2017-11-10 13:57 | GDS ---
[f rep st] DISCHARGE SUMMARY REASON FOR ADMISSION: Abdominal pain. HOSPITAL COURSE: 27-year-old female, with a complicated recent history over the past month, inclusive of recurrent nephrolithiasis, who presented to the office a week and a half ago with acute cholecystitis. She underwent an uncomplicated laparoscopic cholecystectomy. She re-presented to the emergency room the following weekend with severe colicky right mid abdominal pain. She had been extensively worked up through [facility] prior to this admission. Her only new findings were that of a new right ovarian cyst with possible periadnexal fluid. Her symptoms continued to persist with the right mid abdomen. She was admitted for pain control. Additional imaging studies included an abdominal MRI and MRCP which showed no other acute findings. She was seen by Dr. Muir from the urology service. No acute urologic findings were noted, specifically, no evidence of hydroureter or hydronephrosis. Her initial urine showed evidence of possible infection which was treated with Ancef. Her leukocytosis did resolve. Her urinalysis showed no bacterial growth. She was ultimately discharged to home on November 10 in improved condition with less frequently colicky attacks. Etiology of her pain was not definitively identified. However, she was clinically improving with resolved leukocytosis. She will be seen in followup by Dr. Martin in 1 week. She was to resume all pre-hospital medications. She was given new prescriptions for gabapentin 300 mg 3 times daily, meloxicam 7.5 mg daily, and alternating Valium/oxycodone for breakthrough spasm attacks. Findings and recommendations were discussed at length with the patient and prior to leaving, as well as activity instructions. /[id number]/MODL MTDD
== END 2017-11-10 09:13 | disposition home or self-care (01) ==
LOC: F3E 14:12
PROVIDERS: ADMIT Surgery; ATTEND Surgery
DX: R10.11 Right upper quadrant pain (principal); N83.201 Unspecified ovarian cyst, right side; Z87.442 Personal history of urinary calculi; Z90.49 Acquired absence of other specified parts of digestive tract
CPT/HCPCS: 74018; 74181; 76705; 96361; 96374; 96375; 99285; G0378; J0690; J1170; J1885; J2405; J2765; J3360